=== PATIENT | male | born 1960 | race Two or more races ===

== ENCOUNTER → 2017-03-23 | Outpatient (CLI) | payer OTHER ==
--- NOTE | 2017-03-23 09:34 | RADRPT ---
EXAM DATE/TIME: 03/23/2017 09:15 [place] COMPARISON: No previous studies available for comparison. INDICATIONS : Fell 2yrs ago, low back pain radiating into legs. MEDICAL HISTORY : None. SURGICAL HISTORY : None. ENCOUNTER: Initial ACUITY: >1 year PAIN SCORE: 10/10 LOCATION: Bilateral lumbar spine. FINDINGS: There are five non-rib bearing vertebral bodies. The vertebral bodies are in normal alignment withou t evidence of subluxation or scoliosis. The posterior elements are intact without evidence of spondy lolysis. The pedicles are intact. Bony mineralization is normal. There is mild joint space narrowi ng with osteophyte formation at L2-S1. There is resultant mild bilateral bony caudal neural foraminal narrowing at L2-5. No fracture is identified. CONCLUSION: 1. No acute fracture or subluxation. 2. Degenerative spondylosis of the lower lumbar spine with disc space narrowing, osteophyte formation and mild caudal bilateral bony neural foraminal narrowing most prominently at L2-5. Kelechi Graham MD on March 23, 2017 at 9:28 Board Certified Radiologist. This report was verified electronically.
== END ==
LOC: HRAD 08:54
PROVIDERS: ATTEND Nurse Practitioner Family
DX: M54.5 Low back pain (principal)
CPT/HCPCS: 72110